=== PATIENT | male | born 1960 | race Caucasian/White ===

== ENCOUNTER → 2020-11-18 15:37 | Outpatient (BNVA) | payer MEDICAID, SELFPAY | PROVIDERS: Visit Provider Nurse Practitioner Family | DX: Z20.828 Contact with and (suspected) exposure to other viral communicable diseases (principal) | CPT/HCPCS: 87635 ==

== ENCOUNTER → 2020-11-22 09:45 | Outpatient (BNVA) | payer OTHER, SELFPAY | PROVIDERS: Visit Provider Nurse Practitioner Family | DX: Z20.822 Contact with and (suspected) exposure to COVID-19 (principal); J06.9 Acute upper respiratory infection, unspecified | CPT/HCPCS: 87635 ==

== ENCOUNTER → 2021-10-12 10:53 | Outpatient (BNVA) | payer OTHER, SELFPAY | PROVIDERS: Visit Provider Nurse Practitioner Family | DX: Z20.822 Contact with and (suspected) exposure to COVID-19 (principal) | CPT/HCPCS: 87635 ==

== ENCOUNTER 2022-06-06 23:03 | Emergency (ER) | payer OTHER, SELFPAY ==
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
[2022-06-06 23:17] VITALS: BP 162/98; PULSE 70; RESP 20; TEMP 36.6; O2SAT 97; BMI 32.9
[2022-06-06] MEDS: tetanus-dipt-pertussis 0.5 mL SDV IM (23:33)
[2022-06-06] MEDS: cephALEXin 500 mg Capsule PO (23:40)
[2022-06-06 23:43] VITALS: BP 168/101; PULSE 70; RESP 18; O2SAT 96
--- NOTE | 2022-06-06 23:49 | PC.NURSE ---
Right forearm lac stapled by ED Provider. Wound cleansed by provider. Wrapped with gauze and kerlex.
== END 2022-06-06 23:50 | disposition home or self-care (01) ==
PROVIDERS: Emergency Provider Nurse Practitioner Family
DX: S51.811A Laceration without foreign body of right forearm, initial encounter (principal); W20.8XXA Other cause of strike by thrown, projected or falling object, initial encounter; Z23 Encounter for immunization; Z79.82 Long term (current) use of aspirin
CPT/HCPCS: 12002; 90471; 90715; 99283